=== PATIENT | male | born 1950 | race Caucasian/White ===

== ENCOUNTER → 2020-10-27 | Outpatient (CLI) | payer MEDICARE ==
[~2020-10-27] MED LIST: AMARYL4 MG PO; ASPIRIN EC81 MG PO; BUDESONIDE0.5 MG/2 M NEB; CLOPIDOGREL75 MG PO; COLACE 100MG C100 MG PO; CYANOCOBAL1000 MCG/1 INJ; FERROUS SULFAT325 M2 PO; FERROUS SULFAT325 MG PO; FUROSEMIDE40 MG PO; GLIMEPIRIDE4 MG PO; IMDUR ER TAB 3030 MG PO; LEVOFLOXACIN250 MG PO; LISINOPRIL5 MG PO; MAGNESIUM PO; METOPROLOL SUCC25 MG PO; MOBIC7.5 MG PO; PLAVIX 75 MG TA75 MG PO; PROVENTIL HFA6.7 GM INH; TOPROL XL50 MG PO; TRADJENTA5 MG PO; VITAMIN C1000 MG PO
== END ==
LOC: ECHO 08:19
DX: I42.9 Cardiomyopathy, unspecified (principal); R06.02 Shortness of breath; I51.89 Other ill-defined heart diseases
CPT/HCPCS: ECHO; 93306